=== PATIENT | male | born 1995 | race Caucasian/White ===

== ENCOUNTER → 2021-01-30 | Outpatient (CLI) | payer OTHER ==
[~2021-01-30] MED LIST: ISOVUE-370 76% 100ML VIAL As Ordered ONE
--- NOTE | 2021-01-30 19:39 | REP ---
INDICATION: AVM. History of jugular distension with no associated dizziness, lightheadedness, neck pain, chest pain or other symptoms. Bulge in the right side of the neck when patient bears down. COMPARISON: None. TECHNIQUE: Helical scanning is acquired following the intravenous injection of 75 mL of Isovue 370. FINDINGS: Digital preliminary program director scouting images are unremarkable. There is good opacification of the arterial and venous structures in the neck. There is no evidence of arteriovenous malformation. The internal and external jugular veins are somewhat prominent in the neck bilaterally. The left internal jugular vein is larger than the right and both external jugular veins are prominent. The upper mediastinum is unremarkable. No neck mass or adenopathy is seen. Thyroid lobes are normal and symmetric. Submandibular and parotid glands are normal and symmetric. There are bilateral normal-sized anterior and posterior cervical lymph nodes. IMPRESSION: The external jugular veins are un usually prominent bilaterally. The internal jugular veins are somewhat prominent in size as well. No obstructive lesion is seen in the visualized portion of the upper mediastinum. There are shotty normal-sized lymph nodes in the neck anteriorly and posteriorly. No evidence of neck mass or cyst. If felt to be clinically warranted, contrast enhanced chest CT study could be considered for further evaluation of the mediastinum. <Electronically signed by Tim Minaya > 01/30/211934
== END ==
LOC: M RAD 17:41
DX: R22.1 Localized swelling, mass and lump, neck (principal)

== ENCOUNTER → 2021-02-16 | Outpatient (REF) | payer OTHER ==
[2021-02-16 14:51] LABS: SEMEN APPEARANCE OPAQUE (OPAQUE); SEMEN VISCOSITY LIQUID (LIQUID); SEMEN VOLUME 4.3 ml (2.0-5.0)
[2021-02-16 14:52] LABS: SPERM CONCENTRATION 159.1 M/ml (>=15.0); WBC CONCENTRATION <=1 M/ml (<=1 M/ml)
== END ==
LOC: M LAB REF 14:39
PROVIDERS: ATTEND Physician Assistant
DX: Z31.41 Encounter for fertility testing (principal)